=== PATIENT | female | born 1965 | race Caucasian/White ===

== ENCOUNTER 2016-09-12 19:42 | Emergency (ER) | payer OTHER ==
[~2016-09-12] VITALS: Ht 165.1 cm; Wt 47.6 kg
[~2016-09-12 19:42] MED LIST: DIP25C PO; LAM25T PO; PANT40T PO; ZIPR80CA8 PO
[2016-09-12 19:55] VITALS: BP 101/63
[2016-09-12 20:26] LABS: Basophils # (auto) 0 uL; Basophils % (auto) 0.6 % (0.0-2.0); CONDITION Y; Eosinophils # (auto) 0.1 uL; Eosinophils % (auto) 1.2 % (0.0-7.0); Hematocrit 31.1 % (36.0-46.0); Hemoglobin 10.3 g/dL (12.2-16.2); Lymphocytes # (auto) 2.8 uL; Lymphocytes % (auto) 40.1 % (10.0-50.0); Mean Corpuscular Hemoglobin 32.7 pg (28.0-32.0); Mean Corpuscular Volume 98.9 fL (80.0-100.0); Mean Platelet Volume 7.1 fL (7.4-10.4); Monocytes % (auto) 14.2 % (0.0-12.0); Neutrophils # (auto) 3.1 uL; Neutrophils % (auto) 43.9 % (37.0-80.0); Platelet Count (auto) 499 10^3/uL (140-450); Red Cell Distribution Width 15.9 % (11.6-16.0); White Blood Cell 7.1 10^3/uL (4.4-10.8)
[2016-09-12 20:55] LABS: Albumin 2.7 g/dL (3.4-5.0); Alkaline Phosphatase 73 U/L (45-117); Anion Gap 7 (5-15); Aspartate Aminotransferase 15 U/L (15-37); BUN/Creatinine Ratio 22.7; Bilirubin, Total < 0.1 mg/dL (0.2-1.0); Blood Urea Nitrogen 10 mg/dL (7-18); Calcium 8.7 mg/dL (8.5-10.1); Carbon Dioxide 27 mmol/L (21-32); Chloride 109 mmol/L (98-107); GFR African American 192 mL/min; GFR Non-African American 159 mL/min; Glucose 107 mg/dL (74-106); Potassium 3.9 mmol/L (3.5-5.1); Sodium 143 mmol/L (136-145); Total Protein 6.6 g/dL (6.4-8.2)
[2016-09-13 02:13] LABS: Urine RBC None Seen /hpf (0 - 4)
[2016-09-13 02:24] LABS: Urine Bilirubin Negative (Negative); Urine Blood Negative /uL (Negative); Urine Color Yellow (Yellow); Urine Glucose Normal (Normal); Urine Ketone Negative (Negative); Urine Nitrite Negative (Negative); Urine Squamous Epithelial Cell FEW /hpf (<5); Urine Urobilinogen Normal (Negative); Urine pH 6.5 (5.0-8.0)
== END 2016-09-12 23:50 | disposition left against medical advice (07) ==
LOC: EDBD 19:42 → ER 19:47
DX: R06.02 Shortness of breath (principal); Z53.21 Procedure and treatment not carried out due to patient leaving prior to being seen by health care provider
CPT/HCPCS: 36415; 71020; 80053; 80307; 81001; 84484; 85025; 93005

== ENCOUNTER 2017-03-09 13:40 | Inpatient (IN) | payer MEDICAID, OTHER ==
[~2017-03-09] VITALS: Ht 144.8 cm; Wt 47.3 kg
[2017-03-09] MEDS ORDERED: EZ PAQUE SUSP 12OZ BTL ONE (19:52)
[2017-03-09] MEDS ORDERED: GASTROGRAFIN 120 ML SOL ONE (19:54)
[2017-03-09 22:36] LABS: Hematocrit 39.2 % (36.0-46.0); Hemoglobin 13.2 g/dL (12.2-16.2); Mean Corpuscular Hemoglobin 30.7 pg (28.0-32.0); Mean Corpuscular Hgb Conc. 33.7 g/dL (32.0-36.0); Mean Corpuscular Volume 91.1 fL (80.0-100.0); Platelet Count (auto) 339 10^3/uL (140-450); Red Blood Cells 4.31 10^6/uL (4.0-5.20); Red Cell Distribution Width 14.3 % (11.8-14.3); White Blood Cell 4.4 10^3/uL (4.4-10.8)
[2017-03-09 22:39] LABS: Band Neutrophils % (manual) 0; Basophils % (manual) 0 (0.0-2.0); Blast Cells 0; Eosinophils % (manual) 0 (0-7); Metamyelocytes % 0; Myelocytes % 0; Promyelocytes % 0; Reactive Lymphocytes 0
[2017-03-09 22:49] LABS: BUN/Creatinine Ratio 8.3; Bilirubin, Total 0.2 mg/dL (0.2-1.0); Calcium 8.3 mg/dL (8.5-10.1); Potassium 3.8 mmol/L (3.5-5.1); Total Protein 7.4 g/dL (6.4-8.2)
[2017-03-09] MEDS ORDERED: HYDROcodone-ACET 5/325MG TAB PO PRN (23:00)
[2017-03-09] MEDS ORDERED: TEMAZEPAM 15 MG CAP PO PRN (23:00)
[2017-03-09] MEDS ORDERED: ACETAMINOPHEN 325 MG TAB PO PRN (23:00)
[2017-03-09] MEDS ORDERED: ONDANSETRON HCL 4 MG/2 ML VIAL IV PRN (23:00)
[2017-03-09 23:03] LABS: Lymphocytes % (manual) 41 (10.0-50.0); Monocytes % (manual) 13 (0-12)
[2017-03-09] MEDS: SODIUM CHLORIDE 0.9% 1,000 ML IV SCH (23:08)
[2017-03-10 02:40] VITALS: BP 104/76
[2017-03-10] MEDS ORDERED: PNEUMOCOCCAL VACC POLYS 25 MCG/0.5 ML VIAL SUBCUT ONE (04:45)
[2017-03-10 05:00] VITALS: BP 104/76
[2017-03-10] MEDS ORDERED: PNEUMOCOCCAL VACC POLYS 25 MCG/0.5 ML VIAL IM ONE (05:00)
[2017-03-10] MEDS ORDERED: INFLUENZA QUAD 2017-2018 0.5 ML SYRG IM ONE (05:00)
[2017-03-10 08:51] LABS: Hematocrit 38.4 % (36.0-46.0); Hemoglobin 12.7 g/dL (12.2-16.2); Mean Corpuscular Hemoglobin 30.3 pg (28.0-32.0); Mean Corpuscular Hgb Conc. 33.1 g/dL (32.0-36.0); Mean Corpuscular Volume 91.3 fL (80.0-100.0); Platelet Count (auto) 305 10^3/uL (140-450); Red Cell Distribution Width 14.3 % (11.8-14.3); White Blood Cell 3.6 10^3/uL (4.4-10.8)
[2017-03-10 08:54] LABS: Band Neutrophils % (manual) 0; Basophils % (manual) 0 (0.0-2.0); Blast Cells 0; Eosinophils % (manual) 0 (0-7); Metamyelocytes % 0; Myelocytes % 0; Promyelocytes % 0; Reactive Lymphocytes 0
[2017-03-10 09:00] VITALS: BP 107/71
[2017-03-10 09:21] LABS: Albumin 2.6 g/dL (3.4-5.0); BUN/Creatinine Ratio 9.1; Bilirubin, Total 0.1 mg/dL (0.2-1.0); Calcium 7.9 mg/dL (8.5-10.1); Potassium 3.9 mmol/L (3.5-5.1); Total Protein 6.6 g/dL (6.4-8.2)
[2017-03-10] MEDS: ENOXAPARIN SOD 40 MG/0.4 ML SYRINGE SC SCH (10:00)
[2017-03-10] MEDS: lamoTRIgine 25 MG TAB PO SCH (10:14)
[2017-03-10] MEDS: PANTOPRAZOLE 40 MG/10 ML VIAL IV SCH (10:16)
[2017-03-10] MEDS: SODIUM CHLORIDE 0.9% 1,000 ML IV SCH (12:10)
[2017-03-10 13:00] VITALS: BP 93/68
[2017-03-10 13:16] LABS: Lymphocytes % (manual) 43 (10.0-50.0); Monocytes % (manual) 22 (0-12)
[2017-03-10 17:00] VITALS: BP 100/71
[2017-03-10 22:00] VITALS: BP 93/69
[2017-03-11] MEDS: SODIUM CHLORIDE 0.9% 1,000 ML IV SCH ×2 (01:37→14:38)
[2017-03-11 05:01] VITALS: BP 93/63
[2017-03-11 07:56] VITALS: BP 94/53
[2017-03-11] MEDS: PANTOPRAZOLE 40 MG/10 ML VIAL IV SCH (09:47)
[2017-03-11] MEDS: lamoTRIgine 25 MG TAB PO SCH (09:47)
[2017-03-11] MEDS: ENOXAPARIN SOD 40 MG/0.4 ML SYRINGE SC SCH (09:48)
[2017-03-11 10:53] LABS: INR 0.95 (0.9-1.15); Prothrombin Time 10.4 sec (9.37-12.3)
[2017-03-11 11:48] VITALS: BP 106/70
[2017-03-11 16:29] VITALS: BP 90/63
[2017-03-11 22:00] VITALS: BP 90/62
[2017-03-12] MEDS: SODIUM CHLORIDE 0.9% 1,000 ML IV SCH (04:03)
[2017-03-12 05:00] VITALS: BP 98/71
[2017-03-12] MEDS ORDERED: SODIUM CHLORIDE LOCK 10 ML ONE (08:22)
[2017-03-12] MEDS ORDERED: diphenhdrAMINE HCL 50 MG/1 ML VL ONE (08:22)
[2017-03-12] MEDS ORDERED: LIDOCAINE VISCOUS 2% 15ML UD ONE (08:23)
[2017-03-12 09:00] VITALS: BP 82/60
[2017-03-12] MEDS: ENOXAPARIN SOD 40 MG/0.4 ML SYRINGE SC SCH (10:00)
[2017-03-12] MEDS: fentaNYL CITRATE 100 MCG/2 ML VL ONE ×3 (10:15→10:43)
[2017-03-12] MEDS: MIDAZOLAM HCL 5 MG/ML-1ML VIAL ONE ×3 (10:15→10:43)
[2017-03-12] MEDS ORDERED: PANTOPRAZOLE 40 MG TAB PO ONE (11:30)
[2017-03-12] MEDS: lamoTRIgine 25 MG TAB PO SCH (12:30)
[2017-03-12 13:31] VITALS: BP 90/63
[2017-03-12 13:40] VITALS: BP 90/63
[2017-03-12 13:59] VITALS: BP 90/63
[2017-03-12] MEDS ORDERED: PANTOPRAZOLE 40 MG TAB PO SCH (22:00)
== END 2017-03-12 15:25 | disposition home or self-care (01) | DRG 243 ==
LOC: ER 13:44 → OVERFLOW 13:45 → EAST 03-10 02:45
PROVIDERS: ADMIT Nurse Practitioner; ATTEND Internal Medicine
PROC: 0D758ZZ Dilation of Esophagus, Via Natural or Artificial Opening Endoscopic (ICD-10-PCS; principal; 2017-03-12 10:11)
DX: K22.2 Esophageal obstruction (principal); E44.0 Moderate protein-calorie malnutrition; R64 Cachexia; E88.09 Other disorders of plasma-protein metabolism, not elsewhere classified; I10 Essential (primary) hypertension; K44.9 Diaphragmatic hernia without obstruction or gangrene; Z79.899 Other long term (current) drug therapy; Z68.22 Body mass index [BMI] 22.0-22.9, adult; Z23 Encounter for immunization
CPT/HCPCS: 36415; 43213; 43249; 70360; 74220; 80053; 83690; 85007; 85027; 85610; 85730; 92610; 93005; 96361; 96374; C9113; J2250

== ENCOUNTER 2017-05-07 06:06 | Emergency (ER) | payer MEDICAID ==
[~2017-05-07] VITALS: Ht 152.4 cm; Wt 47.6 kg
[~2017-05-07 06:06] MED LIST changes: -PANT40T PO
[2017-05-07 06:12] VITALS: BP 131/84
[2017-05-07 07:10] LABS: Basophils # (auto) 0 uL; Basophils % (auto) 0.4 % (0.0-2.0); Eosinophils # (auto) 0.1 uL; Hematocrit 36.8 % (36.0-46.0); Hemoglobin 12.3 g/dL (12.2-16.2); Lymphocytes # (auto) 2.1 uL; Lymphocytes % (auto) 25.8 % (10.0-50.0); Mean Corpuscular Hemoglobin 30.6 pg (28.0-32.0); Mean Corpuscular Hgb Conc. 33.6 g/dL (32.0-36.0); Mean Corpuscular Volume 91.2 fL (80.0-100.0); Monocytes # (auto) 0.7 uL; Monocytes % (auto) 9.2 % (0.0-12.0); Neutrophils # (auto) 5.1 uL; Neutrophils % (auto) 63.6 % (37.0-80.0); Platelet Count (auto) 363 10^3/uL (140-450); Red Blood Cells 4.04 10^6/uL (4.0-5.20); Red Cell Distribution Width 15.3 % (11.8-14.3); White Blood Cell 8.1 10^3/uL (4.4-10.8)
[2017-05-07 07:26] LABS: Alanine Aminotransferase 16 U/L (13-56); Albumin 2.8 g/dL (3.4-5.0); Alkaline Phosphatase 85 U/L (45-117); Anion Gap 9 (5-15); Aspartate Aminotransferase 14 U/L (15-37); BUN/Creatinine Ratio 33.3; Bilirubin, Total 0.2 mg/dL (0.2-1.0); Blood Urea Nitrogen 14 mg/dL (7-18); Calcium 8.4 mg/dL (8.5-10.1); Carbon Dioxide 26 mmol/L (21-32); Chloride 102 mmol/L (98-107); GFR African American 202 mL/min; GFR Non-African American 167 mL/min; Glucose 119 mg/dL (74-106); Magnesium 2.2 mg/dL (1.6-2.6); Potassium 3.5 mmol/L (3.5-5.1); Sodium 137 mmol/L (136-145); Total Protein 7.1 g/dL (6.4-8.2)
== END 2017-05-07 07:08 | disposition left against medical advice (07) ==
LOC: ER 06:06
DX: R07.9 Chest pain, unspecified (principal); Z53.21 Procedure and treatment not carried out due to patient leaving prior to being seen by health care provider
CPT/HCPCS: 36415; 71045; 80053; 83735; 84443; 84484; 85025

== ENCOUNTER 2017-09-22 13:52 | Inpatient (IN) | payer MEDICAID ==
[~2017-09-22] VITALS: Ht 165.1 cm; Wt 42.9 kg
[2017-09-22] MEDS ORDERED: SODIUM CHLORIDE 0.9% 1,000 ML IVB ONE (14:45)
[2017-09-22 15:07] LABS: Basophils # (auto) 0.1 uL; Eosinophils # (auto) 0 uL; Eosinophils % (auto) 0.3 % (0.0-7.0); Lymphocytes # (auto) 2.3 uL; Neutrophils # (auto) 6.5 uL
[2017-09-22 15:09] LABS: Basophils % (auto) 0.7 % (0.0-2.0); Hematocrit 44.8 % (36.0-46.0); Mean Corpuscular Hemoglobin 28.4 pg (28.0-32.0); Mean Corpuscular Hgb Conc. 33.5 g/dL (32.0-36.0); Mean Corpuscular Volume 84.7 fL (80.0-100.0); Monocytes % (auto) 10.3 % (0.0-12.0); Neutrophils % (auto) 65.7 % (37.0-80.0); Nucleated Red Blood Cells % 0.1 %; Platelet Count (auto) 496 10^3/uL (140-450); Red Blood Cells 5.29 10^6/uL (4.0-5.20); Red Cell Distribution Width 17.1 % (11.8-14.3)
[2017-09-22 15:27] LABS: Alanine Aminotransferase 21 U/L (13-56); Albumin 3.9 g/dL (3.4-5.0); Alkaline Phosphatase 102 U/L (45-117); Anion Gap 13 (5-15); Aspartate Aminotransferase 17 U/L (15-37); Bilirubin, Total 0.6 mg/dL (0.2-1.0); Blood Urea Nitrogen 17 mg/dL (7-18); Carbon Dioxide 25 mmol/L (21-32); Chloride 99 mmol/L (98-107); GFR African American 90 mL/min; GFR Non-African American 74 mL/min; Glucose 117 mg/dL (74-106); Magnesium 2.4 mg/dL (1.6-2.6); Sodium 137 mmol/L (136-145); Total Protein 8.7 g/dL (6.4-8.2)
[2017-09-22 15:32] LABS: Potassium 2.4 mmol/L (3.5-5.1)
[2017-09-22] MEDS ORDERED: POTASSIUM EFFERVESENT TAB 25 MEQ PO ONE ×3 (16:15→16:45)
[2017-09-22] MEDS ORDERED: LORazepam 2MG/ML-1ML VIAL IV PRN (18:00)
[2017-09-22] MEDS ORDERED: diphenhdrAMINE HCL 25 MG CAP PO PRN (18:00)
[2017-09-22] MEDS ORDERED: MORPHINE SULFATE 4 MG/ML SYR/VIAL IV PRN ×3 (18:00)
[2017-09-22] MEDS ORDERED: PROMETHAZINE HCL 25 MG/ML 1ML IV PRN (18:00)
[2017-09-22] MEDS ORDERED: NITROGLYCERIN 0.4 MG SL TAB SL PRN (18:00)
[2017-09-22] MEDS: FAMOTIDINE (10MG/ML) 2ML VL IV SCH (18:17)
[2017-09-22] MEDS: POTASSIUM CHL 20MEQ/100ML 100 ML IV SCH ×3 (18:22→22:00)
[2017-09-22] MEDS: SOD CHL 0.9%/ KCL 40MEQ 1,000 ML IV SCH (18:35)
[2017-09-22] MEDS: ZIPRASIDONE HYDROCHLORIDE 40 MG PO SCH (22:00)
[2017-09-22 23:18] LABS: Urine Bacteria FEW /hpf (None Seen); Urine Blood Negative /uL (Negative); Urine Mucus FEW (None Seen); Urine Specific Gravity 1.026 (1.001-1.035); Urine WBC 21 /hpf (0 - 5)
[2017-09-23] MEDS: POTASSIUM CHL 20MEQ/100ML 100 ML IV SCH
[2017-09-23 04:30] VITALS: BP 98/64
[2017-09-23 04:42] VITALS: BP 98/64
[2017-09-23] MEDS ORDERED: PNEUMOCOCCAL VACC POLYS 25 MCG/0.5 ML VIAL IM ONE (05:15)
[2017-09-23] MEDS: SOD CHL 0.9%/ KCL 40MEQ 1,000 ML IV SCH ×3 (05:40→23:45)
[2017-09-23] MEDS: lamoTRIgine 25 MG TAB PO SCH (09:24)
[2017-09-23] MEDS: FAMOTIDINE (10MG/ML) 2ML VL IV SCH (09:25)
[2017-09-23] MEDS: ZIPRASIDONE HYDROCHLORIDE 40 MG PO SCH ×2 (09:25→21:57)
[2017-09-23 09:26] VITALS: BP 105/70
[2017-09-23 10:11] LABS: BUN/Creatinine Ratio 22.2; Bilirubin, Total 0.6 mg/dL (0.2-1.0); Calcium 8.1 mg/dL (8.5-10.1); Potassium 3.5 mmol/L (3.5-5.1); Total Protein 6.7 g/dL (6.4-8.2)
[2017-09-23 13:00] VITALS: BP 112/80
[2017-09-23] MEDS ORDERED: cefTRIAXone 1GM/10ml IVPUSH 10 ML IV ONE (14:00)
[2017-09-23 17:28] VITALS: BP 119/82
[2017-09-23 21:48] VITALS: BP 102/65
[2017-09-23] MEDS: PANTOPRAZOLE 40 MG/10 ML VIAL IV SCH (21:56)
[2017-09-24 05:05] VITALS: BP 115/62
[2017-09-24 06:53] LABS: INR 1.04 (0.9-1.15); Partial Thromboplastin Time 25.9 sec (23.78-33.04); Prothrombin Time 11.1 sec (9.27-12.13)
[2017-09-24 07:27] VITALS: BP 120/75
[2017-09-24] MEDS ORDERED: diphenhdrAMINE HCL 50 MG/1 ML VL ONE (08:20)
[2017-09-24] MEDS ORDERED: LIDOCAINE VISCOUS 2% 15ML UD ONE (08:20)
[2017-09-24] MEDS: cefTRIAXone 1GM/10ml IVPUSH 10 ML IV SCH (08:30)
[2017-09-24] MEDS: SOD CHL 0.9%/ KCL 40MEQ 1,000 ML IV SCH ×2 (08:31→21:55)
[2017-09-24] MEDS: ZIPRASIDONE HYDROCHLORIDE 40 MG PO SCH ×2 (09:46→21:55)
[2017-09-24] MEDS: lamoTRIgine 25 MG TAB PO SCH (09:47)
[2017-09-24] MEDS: PANTOPRAZOLE 40 MG/10 ML VIAL IV SCH ×2 (10:02→21:52)
[2017-09-24] MEDS: fentaNYL CITRATE 100 MCG/2 ML VL ONE ×3 (12:05→12:13)
[2017-09-24] MEDS: MIDAZOLAM HCL 5 MG/ML-1ML VIAL ONE ×4 (12:05→12:16)
[2017-09-24] MEDS ORDERED: MIDAZOLAM HCL 5 MG/ML-1ML VIAL ONE (12:28)
[2017-09-24] MEDS ORDERED: fentaNYL CITRATE 100 MCG/2 ML VL ONE (12:28)
[2017-09-24 16:32] VITALS: BP 102/73
[2017-09-24 22:00] VITALS: BP 92/51
[2017-09-25 05:33] VITALS: BP 101/60
[2017-09-25] MEDS: SOD CHL 0.9%/ KCL 40MEQ 1,000 ML IV SCH ×2 (05:36→18:46)
[2017-09-25] MEDS: ENSURE CLEAR Mixed Berry 8oz Carton PO SCH ×3 (08:30→18:30)
[2017-09-25] MEDS: cefTRIAXone 1GM/10ml IVPUSH 10 ML IV SCH (09:00)
[2017-09-25] MEDS: ZIPRASIDONE HYDROCHLORIDE 40 MG PO SCH ×2 (09:07→22:00)
[2017-09-25] MEDS: lamoTRIgine 25 MG TAB PO SCH (09:07)
[2017-09-25] MEDS: PANTOPRAZOLE 40 MG/10 ML VIAL IV SCH ×2 (09:07→23:02)
[2017-09-25 13:00] VITALS: BP 109/67
[2017-09-25 17:32] VITALS: BP 120/69
[2017-09-25 21:52] VITALS: BP 124/69
[2017-09-26 05:18] VITALS: BP 132/66
[2017-09-26 08:17] VITALS: BP 98/62
[2017-09-26] MEDS: PANTOPRAZOLE 40 MG/10 ML VIAL IV SCH (09:40)
[2017-09-26] MEDS: lamoTRIgine 25 MG TAB PO SCH (09:40)
[2017-09-26] MEDS: SOD CHL 0.9%/ KCL 40MEQ 1,000 ML IV SCH ×2 (09:40→12:00)
[2017-09-26] MEDS: cefTRIAXone 1GM/10ml IVPUSH 10 ML IV SCH (09:40)
[2017-09-26] MEDS: ENSURE CLEAR Mixed Berry 8oz Carton PO SCH ×2 (09:41→12:30)
[2017-09-26] MEDS ORDERED: ZIPR80CA8 PO (09:48)
[2017-09-26] MEDS ORDERED: LAM100T PO (09:48)
[2017-09-26] MEDS: ZIPRASIDONE HYDROCHLORIDE 40 MG PO SCH (10:00)
== END 2017-09-26 18:00 | disposition home or self-care (01) | DRG 243 ==
LOC: ER 13:54 → TELE 13:55 → TELE-WESTW 09-23 04:25 → WEST WING 09-25 07:57
PROVIDERS: ADMIT Internal Medicine; ATTEND Hospitalist
PROC: 0DC58ZZ Extirpation of Matter from Esophagus, Via Natural or Artificial Opening Endoscopic (ICD-10-PCS; 2017-09-24)
PROC: 0D758ZZ Dilation of Esophagus, Via Natural or Artificial Opening Endoscopic (ICD-10-PCS; principal; 2017-09-24 12:02)
DX: K22.2 Esophageal obstruction (principal); E44.0 Moderate protein-calorie malnutrition; T18.128A Food in esophagus causing other injury, initial encounter; F20.9 Schizophrenia, unspecified; I10 Essential (primary) hypertension; E87.6 Hypokalemia; K44.9 Diaphragmatic hernia without obstruction or gangrene; Z82.49 Family history of ischemic heart disease and other diseases of the circulatory system; F31.9 Bipolar disorder, unspecified; N39.0 Urinary tract infection, site not specified; Z23 Encounter for immunization; R62.7 Adult failure to thrive; X58.XXXA Exposure to other specified factors, initial encounter; Y93.89 Activity, other specified; Y92.89 Other specified places as the place of occurrence of the external cause; Y99.8 Other external cause status; F17.200 Nicotine dependence, unspecified, uncomplicated; K20.9 Esophagitis, unspecified
CPT/HCPCS: 36415; 43247; 43249; 70360; 71045; 80053; 80061; 81001; 83735; 84484; 85025; 85610; 85730; 86850; 86900; 86901; 94761; 96361; 96365; A6257; C9113; J0696; J2250; J3480; J3490

== ENCOUNTER 2018-01-30 13:32 | Emergency (ER) | payer MEDICAID ==
[~2018-01-30] VITALS: Ht 165.1 cm; Wt 49.9 kg
[~2018-01-30 13:32] MED LIST changes: -DIP25C PO; +LAM100T PO; -LAM25T PO
[2018-01-30 15:11] LABS: Basophils # (auto) 0.1 uL; Eosinophils # (auto) 0 uL; Lymphocytes # (auto) 2.4 uL
[2018-01-30 15:13] LABS: Basophils % (auto) 0.9 % (0.0-2.0); Eosinophils % (auto) 0.3 % (0.0-7.0); Hematocrit 35.1 % (36.0-46.0); Hemoglobin 11.5 g/dL (12.2-16.2); Lymphocytes % (auto) 25.6 % (10.0-50.0); Mean Corpuscular Hgb Conc. 32.8 g/dL (32.0-36.0); Mean Corpuscular Volume 82.3 fL (80.0-100.0); Monocytes % (auto) 10.2 % (0.0-12.0); Nucleated Red Blood Cells % 0.1 %; Platelet Count (auto) 480 10^3/uL (140-450); Red Blood Cells 4.27 10^6/uL (4.0-5.20); Red Cell Distribution Width 15.9 % (11.8-14.3); White Blood Cell 9.5 10^3/uL (4.4-10.8)
[2018-01-30 15:30] LABS: Albumin 3.5 g/dL (3.4-5.0); Calcium 9.1 mg/dL (8.5-10.1); Potassium 3.6 mmol/L (3.5-5.1)
[2018-01-30 15:36] LABS: BUN/Creatinine Ratio 21.7; Bilirubin, Total 0.3 mg/dL (0.2-1.0); Total Protein 7.7 g/dL (6.4-8.2)
[2018-01-30 16:16] LABS: Urine Bacteria FEW /hpf (None Seen); Urine Blood Negative /uL (Negative); Urine Mucus FEW (None Seen); Urine Specific Gravity 1.022 (1.001-1.035); Urine WBC 1 /hpf (0 - 5)
[2018-01-30 16:26] LABS: INR 0.97 (0.9-1.15); Prothrombin Time 10.4 sec (9.27-12.13)
[2018-01-30 17:40] VITALS: BP 110/70
[2018-02-04] MEDS ORDERED: DIPH25CA66 PO (00:38)
[2018-02-04] MEDS ORDERED: PANT40T PO (12:20)
== END 2018-01-30 18:47 | disposition home or self-care (01) ==
LOC: ER 13:38
DX: K22.2 Esophageal obstruction (principal); K22.0 Achalasia of cardia; I10 Essential (primary) hypertension
CPT/HCPCS: 36415; 70360; 80053; 81001; 85025; 85610; 85730

== ENCOUNTER 2018-03-28 15:49 | Inpatient (IN) | payer MEDICAID ==
[~2018-03-28] VITALS: Ht 165.1 cm; Wt 50.0 kg
[~2018-03-28 15:49] MED LIST changes: +DIPH25CA66 PO; +PANT40T PO
[2018-03-28] MEDS ORDERED: SODIUM CHLORIDE 0.9% 250 ML IV ONE (16:25)
[2018-03-28 17:46] LABS: Basophils # (auto) 0.1 uL; Eosinophils # (auto) 0.1 uL; Eosinophils % (auto) 1.3 % (0.0-7.0); Monocytes # (auto) 1.2 uL; Monocytes % (auto) 11.2 % (0.0-12.0); Nucleated Red Blood Cells % 0.2 %
[2018-03-28 17:48] LABS: Basophils % (auto) 1.3 % (0.0-2.0); Hematocrit 39.6 % (36.0-46.0); Hemoglobin 13.1 g/dL (12.2-16.2); Lymphocytes # (auto) 4.3 uL; Lymphocytes % (auto) 39.8 % (10.0-50.0); Mean Corpuscular Hemoglobin 24.8 pg (28.0-32.0); Mean Corpuscular Volume 74.9 fL (80.0-100.0); Neutrophils % (auto) 46.4 % (37.0-80.0); Platelet Count (auto) 531 10^3/uL (140-450); Red Blood Cells 5.28 10^6/uL (4.0-5.20); Red Cell Distribution Width 16.2 % (11.8-14.3); White Blood Cell 10.9 10^3/uL (4.4-10.8)
[2018-03-28 17:54] LABS: Albumin 3.9 g/dL (3.4-5.0); Anion Gap 12 (5-15); Blood Urea Nitrogen 23 mg/dL (7-18); Calcium 8.9 mg/dL (8.5-10.1); Carbon Dioxide 27 mmol/L (21-32); Chloride 90 mmol/L (98-107); Glucose 83 mg/dL (74-106); Magnesium 2.4 mg/dL (1.6-2.6); Sodium 129 mmol/L (136-145)
[2018-03-28 17:56] LABS: Potassium 2.5 mmol/L (3.5-5.1)
[2018-03-28 18:00] LABS: Alanine Aminotransferase 21 U/L (13-56); Alkaline Phosphatase 115 U/L (45-117); Aspartate Aminotransferase 23 U/L (15-37); BUN/Creatinine Ratio 35.4; Bilirubin, Total 0.7 mg/dL (0.2-1.0); GFR African American 122 mL/min; GFR Non-African American 101 mL/min; Total Protein 8.2 g/dL (6.4-8.2)
[2018-03-28 18:12] LABS: INR 1.09 (0.9-1.15); Partial Thromboplastin Time 27.4 sec (23.78-33.04); Prothrombin Time 11.6 sec (9.27-12.13)
[2018-03-28] MEDS: POTASSIUM CHL 20MEQ/100ML 100 ML IV SCH ×2 (19:01→22:10)
[2018-03-28] MEDS ORDERED: HYDROcodone-ACET 5/325MG TAB PO PRN (19:30)
[2018-03-28] MEDS ORDERED: ONDANSETRON HCL 4 MG/2 ML VIAL IV PRN (19:30)
[2018-03-28] MEDS ORDERED: MORPHINE SULFATE 4 MG/ML SYR/VIAL IV PRN ×2 (19:30)
[2018-03-28] MEDS ORDERED: NITROGLYCERIN 0.4 MG SL TAB SL PRN (19:30)
[2018-03-28 22:00] VITALS: BP 97/73
[2018-03-28] MEDS: PANTOPRAZOLE 40 MG TAB PO SCH (22:00)
[2018-03-28] MEDS: QUEtiapine FUMARATE 25 MG TAB PO SCH (22:00)
--- NOTE | 2018-03-28 22:00 | NUR ---
MS admit from ER MALIKA BOSE admitted to tele/MS after SBAR received. Patient oriented to Lissette Maria, RN primary RN, unit, room, bed, and unit policies regarding patient care and visiting hours. Patient weighed by bedscale and encouraged to call if they need something. All questions and concerns addressed, patient verbalized understanding, will continue to monitor Note:
[2018-03-28] MEDS: SOD CHL 0.9%/ KCL 20MEQ 1,000 ML IV SCH (22:10)
--- NOTE | 2018-03-28 22:30 | NUR ---
Patient able to drink juice at this time. Instructed to be NPO after MN for Barium swallow in the morning, patient verbalized understanding, will continue to monitor
[2018-03-29 03:28] LABS: Urine Bacteria FEW /hpf (None Seen); Urine Blood Negative /uL (Negative); Urine Hyaline Cast FEW /lpf (0 - 2); Urine Specific Gravity 1.014 (1.001-1.035); Urine WBC 3 /hpf (0 - 5)
[2018-03-29 05:00] VITALS: BP 82/53
[2018-03-29 05:02] LABS: Basophils # (auto) 0.1 uL; Eosinophils # (auto) 0.1 uL; Hemoglobin 11.6 g/dL (12.2-16.2); Mean Corpuscular Hgb Conc. 32.4 g/dL (32.0-36.0)
[2018-03-29 05:05] LABS: Basophils % (auto) 1.2 % (0.0-2.0); Eosinophils % (auto) 1.2 % (0.0-7.0); Hematocrit 35.9 % (36.0-46.0); Lymphocytes # (auto) 3.9 uL; Lymphocytes % (auto) 43.8 % (10.0-50.0); Mean Corpuscular Hemoglobin 24.3 pg (28.0-32.0); Mean Corpuscular Volume 74.9 fL (80.0-100.0); Monocytes # (auto) 0.9 uL; Monocytes % (auto) 10.5 % (0.0-12.0); Neutrophils # (auto) 3.8 uL; Neutrophils % (auto) 43.3 % (37.0-80.0); Platelet Count (auto) 402 10^3/uL (140-450); Red Blood Cells 4.79 10^6/uL (4.0-5.20); Red Cell Distribution Width 16.7 % (11.8-14.3); White Blood Cell 8.9 10^3/uL (4.4-10.8)
[2018-03-29 05:20] LABS: BUN/Creatinine Ratio 33.3; Calcium 8.2 mg/dL (8.5-10.1); Potassium 3.4 mmol/L (3.5-5.1)
[2018-03-29] MEDS: SOD CHL 0.9%/ KCL 20MEQ 1,000 ML IV SCH ×2 (05:30→09:50)
[2018-03-29] MEDS ORDERED: EZ-GAS II GRANULES (RADIOLOGY USE) PO ONE (06:28)
[2018-03-29] MEDS ORDERED: GASTROGRAFIN 120 ML SOL ONE (06:29)
[2018-03-29] MEDS ORDERED: EZ PAQUE SUSP 12OZ BTL ONE (06:29)
--- NOTE | 2018-03-29 07:40 | NUR ---
OPENING NOTE ASSUMED CARE OF PT. PT IS LAYING ON BED, HOB LOW-FOWLERS. A&O X4. ON ROOM, O2 SATURATION 99%. NO SIGNS OF SOB/DISTRESS. SAFETY PRECAUTIONS IN PLACE INCLUDING, BED SET TO LOWEST POSITION/LOCKED. BEDSIDE RAILS UP X2. CALL LIGHT WITHIN REACH. INSTRUCTED PT TO CALL FOR ASSISTANCE. DISCUSSED POC WITH PT. PT VERBALIZED UNDERSTANDING. WILL CONTINUE TO MONITOR Q 1HR AND PRN.
[2018-03-29 09:00] VITALS: BP 89/60
[2018-03-29] MEDS: lamoTRIgine 25 MG TAB PO SCH (09:50)
[2018-03-29] MEDS: QUEtiapine FUMARATE 25 MG TAB PO SCH ×2 (09:50→21:22)
[2018-03-29] MEDS: PANTOPRAZOLE 40 MG TAB PO SCH ×2 (09:50→21:21)
[2018-03-29 13:00] VITALS: BP 89/66
--- NOTE | 2018-03-29 13:51 | NUR ---
PATIENT SIGNED AMA FORM TO GO OUTSIDE. PATIENT WAS INFORMED OF THE RISK. PATIENT VERBALIZED UNDERSTANDING.
[2018-03-29 17:00] VITALS: BP_SYST 116; BP_SYST 89; BP_DIAS 59; BP_DIAS 62
[2018-03-29] MEDS ORDERED: POTASSIUM EFFERVESENT TAB 25 MEQ PO ONE (18:30)
[2018-03-29] MEDS: SODIUM CHLORIDE 0.9% 1,000 ML IV SCH ×2 (19:46→21:22)
--- NOTE | 2018-03-29 19:46 | NUR ---
ENDORSED CARE TO DANNIELLE SHERIDAN.
--- NOTE | 2018-03-29 19:50 | NUR ---
RECEIVED PATIENT IN BED, AAOX4. NO DISTRESS NOTED. AFEBRILE. DENIES ANY PAIN NOW. WITH MILD BLE WEAKNESS NOTED. POCS DISCUSSED WITH PATIENT AND SHOWED UNDERSTANDING. BED KEPT ON LOWEST POSITION. SIDE RAILS UP. CALL LIGHT/TABLE IN REACH. KEPT COMFORTABLE.
--- NOTE | 2018-03-29 21:50 | NUR ---
BP= 66-74 SYSTOLIC. HR= 81 O2= 97. PAGEWinsome NUNES. AWAITING CALL BACK. PATIENT IS ASYMPTOMATIC. MADE KAVON CHARGE NURSE AWARE AND SHE SAID SHE WILL LET ANTHONY KNOW. NOTED.
[2018-03-29 22:00] VITALS: BP 75/45
--- NOTE | 2018-03-29 22:15 | NUR ---
DR HALL, COVERING FOR DR MIRELES CALLED WITH ORDERS MADE AND NOTED.
[2018-03-29] MEDS ORDERED: SODIUM CHLORIDE 0.9% 1,000 ML IV ONE (22:30)
--- NOTE | 2018-03-29 23:30 | NUR ---
BP= 77/42 AFTER 2ND LITER BOLUS WITH NS. PATIENT DENIES BLEEDING, SOB, PAIN,DIZZINESS,WEAKNESS. SHE CLAIMED THAT SHE IS SO TIRED AND SHE WANTED TO SLEEP. MADE MD AWARE. MADE CHARGE NURSE AWARE. MD GAVE ORDERS AND NOTED. MD HALL SAID, OKAY TO KEEP PATIENT ON THE FLOOR LONG SHE IS ASYMPTOMATIC AND TO CALL HIM BACK IF CONDITION CHANGES. WILL KEEP AN EYE ON PATIENT.
[2018-03-30] VITALS (9 sets, daily range): BP systolic 72–93; BP diastolic 42–61
[2018-03-30] MEDS ORDERED: SODIUM CHLORIDE 0.9% 1,000 ML IV ONE (00:30)
[2018-03-30 05:49] LABS: Hemoglobin 9.4 g/dL (12.2-16.2); Mean Corpuscular Hemoglobin 24.9 pg (28.0-32.0); Red Blood Cells 3.79 10^6/uL (4.0-5.20)
[2018-03-30 05:51] LABS: Hematocrit 29.1 % (36.0-46.0); Mean Corpuscular Hgb Conc. 32.4 g/dL (32.0-36.0); Mean Corpuscular Volume 76.9 fL (80.0-100.0); Platelet Count (auto) 304 10^3/uL (140-450); White Blood Cell 5.3 10^3/uL (4.4-10.8)
[2018-03-30 06:00] LABS: Calcium 7.7 mg/dL (8.5-10.1); Potassium 4.1 mmol/L (3.5-5.1)
[2018-03-30 06:01] LABS: Band Neutrophils % (manual) 0; Basophils % (manual) 0 (0.0-2.0); Blast Cells 0; Metamyelocytes % 0; Myelocytes % 0; Promyelocytes % 0; Reactive Lymphocytes 0
--- NOTE | 2018-03-30 06:03 | NUR ---
ON BED, ASLEEP. NO CHANGES NOTED. NO SOB NOTED. APPEARED COMFORTABLE. FOR MORE CARE AND MANAGEMENT.
[2018-03-30 06:51] LABS: Eosinophils % (manual) 1 (0-7); Lymphocytes % (manual) 66 (10.0-50.0); Monocytes % (manual) 13 (0-12)
--- NOTE | 2018-03-30 07:45 | NUR ---
OPENING NOTE ASSUMED CARE OF PT. PT IS LAYING ON BED, HOB LOW-FOWLERS. A&O X4. ON ROOM, O2 SATURATION 91%. NO SIGNS OF SOB/DISTRESS. SAFETY PRECAUTIONS IN PLACE INCLUDING, BED SET TO LOWEST POSITION/LOCKED. BEDSIDE RAILS UP X2. CALL LIGHT WITHIN REACH. INSTRUCTED PT TO CALL FOR ASSISTANCE. DISCUSSED POC WITH PT. PT VERBALIZED UNDERSTANDING. WILL CONTINUE TO MONITOR Q 1HR AND PRN.
--- NOTE | 2018-03-30 08:20 | NUR ---
PAGED DR. VINCENT REGARDING PATIENT BLOOD PRESSURE. AWAITING CALL BACK.
--- NOTE | 2018-03-30 08:41 | NUR ---
SPOKE TO DR. VINCENT REGARDING PATIENT LOW BP. PER DR. VINCENT BP SYSTOLIC BP NEEDS TO BE >100 FOR EGD PROCEDURE.
--- NOTE | 2018-03-30 09:10 | NUR ---
REASSESSED BP 90/62, HR 71, RR 18, O2 SATURATION 100% ON ROOM AIR. PATIENT IS ASYMPTOMATIC. PATIENT IS LAYING ON BED A&O X4. WILL INFORM MD. WILL CONTINUE TO MONITOR.
[2018-03-30] MEDS: PANTOPRAZOLE 40 MG TAB PO SCH ×2 (10:00→22:00)
[2018-03-30] MEDS: lamoTRIgine 25 MG TAB PO SCH (10:00)
[2018-03-30] MEDS: QUEtiapine FUMARATE 25 MG TAB PO SCH ×2 (10:00→22:00)
[2018-03-30] MEDS ORDERED: MIDAZOLAM HCL 5 MG/ML-1ML VIAL ONE (10:39)
[2018-03-30] MEDS ORDERED: diphenhdrAMINE HCL 50 MG/1 ML VL ONE (10:39)
[2018-03-30] MEDS ORDERED: NALOXONE HCL 0.4 MG/ML VIAL ONE (10:39)
[2018-03-30] MEDS ORDERED: FLUMAZENIL 0.1 MG/ML INJ 10ML MDV IV ONE (10:39)
[2018-03-30] MEDS ORDERED: SODIUM CHLORIDE LOCK 10 ML ONE (10:39)
[2018-03-30] MEDS ORDERED: LIDOCAINE VISCOUS 2% 15ML UD ONE (10:39)
[2018-03-30] MEDS ORDERED: fentaNYL CITRATE 100 MCG/2 ML VL ONE (10:39)
--- NOTE | 2018-03-30 11:32 | NUR ---
SPOKE TO DR Georges MOORE REGARDING BP. NEW ORDERS GIVE/CARRIED OUT IN [facility].
[2018-03-30] MEDS ORDERED: SODIUM CHLORIDE 0.9% 2,000 ML IV ONE (11:45)
--- NOTE | 2018-03-30 12:27 | NUR ---
REASSESSED BP 92/61
--- NOTE | 2018-03-30 12:45 | NUR ---
REASSESSED BP 85/62, HR 68, RR 18, O2 SATURATION 99% ON ROOM AIR. PATIENT IS ASYMPTOMATIC. PATIENT IS LAYING ON BED A&O X4. WILL CONTINUE TO MONITOR.
--- NOTE | 2018-03-30 13:30 | NUR ---
RE: EGD PER DR. VINCENT EGD WILL BE DONE TOMORROW 03/31/18.
--- NOTE | 2018-03-30 17:44 | NUR ---
IV insertion IV access obtained, via clean sterile technique by inserting 22 gauge catheter at right FA after 4 attempt(s). IV secured properly. No trauma to site. Patient tolerated well.
--- NOTE | 2018-03-30 17:50 | NUR ---
IV removal IV DC'd with clean sterile technique, catheter fully intact. Pressure dressing applied to site. Patient tolerated well.
[2018-03-30] MEDS ORDERED: MIDODRINE HCL 10 MG TAB PO ONE (18:15)
[2018-03-30] MEDS: SODIUM CHLORIDE 0.9% 1,000 ML IV SCH (18:23)
--- NOTE | 2018-03-30 19:16 | NUR ---
ENDORSED CARE TO DANNIELLE SUMNER.
[2018-03-31] MEDS: SODIUM CHLORIDE 0.9% 1,000 ML IV SCH ×2 (04:10→12:03)
[2018-03-31 05:30] VITALS: BP 96/54
[2018-03-31] MEDS ORDERED: MIDODRINE HCL 10 MG TAB PO ONE (06:00)
--- NOTE | 2018-03-31 07:15 | NUR ---
OPENING SHIFT NOTE ASSUMED CARE OF PATIENT FROM SUPERVISOR DOPING RN IVIS. PATIENT IS AWAKE AND ALERT X4. PATIENT HAS NO S/S OF DISTRESS/SOB OR PAIN. INSTRUCTED PATIENT ON POC, PATIENT VERBALIZED UNDERSTANDING. BED IS IN LOWEST POSITION WITH SIDE RAILS RAISED X2, BED WHEELS LOCKED, AND CALL LIGHT WITHIN REACH. WILL CONTINUE TO MONITOR
[2018-03-31 08:15] VITALS: BP 95/60
[2018-03-31] MEDS ORDERED: SODIUM CHLORIDE LOCK 10 ML ONE (08:39)
[2018-03-31] MEDS ORDERED: diphenhdrAMINE HCL 50 MG/1 ML VL ONE (08:40)
--- NOTE | 2018-03-31 08:57 | NUR ---
PATIENT TAKEN DOWN TO OR VIA GURNEY. PATIENT HAS NO S/S OF DISTRESS/SOB OR PAIN AT THIS TIME.
[2018-03-31 09:00] VITALS: BP 98/60
[2018-03-31] MEDS: fentaNYL CITRATE 100 MCG/2 ML VL ONE ×3 (09:48→09:56)
[2018-03-31] MEDS: LIDOCAINE VISCOUS 2% 15ML UD ONE (09:48)
[2018-03-31] MEDS: MIDAZOLAM HCL 5 MG/ML-1ML VIAL ONE ×2 (09:48→09:56)
[2018-03-31] MEDS: PANTOPRAZOLE 40 MG TAB PO SCH ×2 (10:00→20:59)
[2018-03-31] MEDS: QUEtiapine FUMARATE 25 MG TAB PO SCH ×2 (10:00→20:58)
[2018-03-31] MEDS: lamoTRIgine 25 MG TAB PO SCH (10:00)
--- NOTE | 2018-03-31 10:25 | NUR ---
REPORT RECEIVED FROM MERCHANDISE ASSOCIATEDANNIELLE ORTEGA. PATIENT IS ON A CLEAR LIQUID DIET.
--- NOTE | 2018-03-31 10:35 | NUR ---
PATIENT BACK UP FROM PACU. PATIENT HAS NO S/S OF DISTRESS/SOB OR PAIN AT THIS TIME.
[2018-03-31 13:00] VITALS: BP 91/63
--- NOTE | 2018-03-31 14:21 | NUR ---
Nutrition Assessment Notes please see attached link for complete assessment Est. Needs IBW 56 [id number] kcal (25-30 kcal/kgBW), 56-67 gms pro (1.0-1.2gms/kgBW). Will continue to monitor pertinent labs and reassess nutrient needs prn Addendum: 03/31/18 at [address] Amended: Links added.
--- NOTE | 2018-03-31 15:19 | NUR ---
I faxed higher level of care order to [facility].
--- NOTE | 2018-03-31 15:28 | NUR ---
I spoke with Kala at [facility] center [phone], provided her with contact information for both Dr. Calzada as well as the nurse's station.
[2018-03-31] MEDS ORDERED: SODIUM CHLORIDE 0.9% 1,000 ML IV SCH (15:30)
--- NOTE | 2018-03-31 15:55 | NUR ---
PAGED DR. MOORE REGARDING TPN. AWAITING CALL BACK Addendum: 03/31/18 at 1856 by Linda Nesbitt RN RN PPN NOT TPN
--- NOTE | 2018-03-31 15:56 | NUR ---
CALLED PHARMACY AND INFORMED THEM PATIENT HAS PPN ORDERED. THEY WILL SEND IT UP FOR 2000
[2018-03-31] MEDS ORDERED: PPN PER PHARMACY 0 ML IV SCH ×2 (16:00→17:00)
[2018-03-31] MEDS ORDERED: D5W/SOD CHL 0.45% 1,000 ML IV SCH (17:00)
--- NOTE | 2018-03-31 17:03 | NUR ---
I placed [facility] on will-call pending transfer to [facility], auth for [facility] (from [facility]) is [id number], the auth for [facility] is [id number].
[2018-03-31 17:40] LABS: Albumin 3.2 g/dL (3.4-5.0); Calcium 8.2 mg/dL (8.5-10.1); Magnesium 1.8 mg/dL (1.6-2.6)
[2018-03-31 17:45] LABS: BUN/Creatinine Ratio 3.6; Bilirubin, Total 0.3 mg/dL (0.2-1.0); Phosphorus 2.8 mg/dL (2.5-4.90); Pre Albumin 11.5 mg/dL (20.0-40.0); Total Protein 6.7 g/dL (6.4-8.2)
--- NOTE | 2018-03-31 19:20 | NUR ---
CLOSING SHIFT NOTE ENDORSED CARE TO TANK TESTER RN IVIS. PATIENT HAS NO S/S OF DISTRESS/SOB OR PAIN AT THIS TIME.
[2018-03-31 20:00] VITALS: BP 83/49
[2018-03-31] MEDS: AMINO ACID INFUSION IN D10W 1,000 ML IV NR (20:21)
[2018-03-31 22:23] VITALS: BP 83/49
[2018-03-31] MEDS: POTASSIUM CHL 20MEQ/100ML 100 ML IV SCH (22:33)
[2018-04-01] MEDS ORDERED: DEXTROSE (50%) 50ML SYRG IV SCH
[2018-04-01] MEDS ORDERED: POTASSIUM PHOSP 22MEQ(15MMOLE) in NS 100 ML IV ONE ×2
[2018-04-01] MEDS: ACCU-CHEK COMFORT CURVE STRIP VI SCH ×4 (00:27→18:17)
[2018-04-01] MEDS: POTASSIUM CHL 20MEQ/100ML 100 ML IV SCH (04:14)
[2018-04-01 05:24] VITALS: BP 96/59
[2018-04-01] MEDS: InsuLIN REG 1unit/0.01ml Soln (100units/ml) SC SCH ×4 (05:25→18:00)
[2018-04-01 05:40] LABS: Lymphocytes # (auto) 3.5 uL; Monocytes # (auto) 0.6 uL; Nucleated Red Blood Cells % 0.1 %
[2018-04-01 05:43] LABS: Basophils # (auto) 0 uL; Basophils % (auto) 0.5 % (0.0-2.0); Eosinophils # (auto) 0.1 uL; Eosinophils % (auto) 1.8 % (0.0-7.0); Hematocrit 30.8 % (36.0-46.0); Lymphocytes % (auto) 50.5 % (10.0-50.0); Mean Corpuscular Hemoglobin 24.4 pg (28.0-32.0); Mean Corpuscular Hgb Conc. 32.4 g/dL (32.0-36.0); Mean Corpuscular Volume 75.5 fL (80.0-100.0); Monocytes % (auto) 8.8 % (0.0-12.0); Neutrophils # (auto) 2.6 uL; Neutrophils % (auto) 38.4 % (37.0-80.0); Platelet Count (auto) 337 10^3/uL (140-450); Red Blood Cells 4.08 10^6/uL (4.0-5.20); Red Cell Distribution Width 17.2 % (11.8-14.3); White Blood Cell 6.9 10^3/uL (4.4-10.8)
[2018-04-01 05:55] LABS: Albumin 2.4 g/dL (3.4-5.0); BUN/Creatinine Ratio 2.1; Calcium 7.6 mg/dL (8.5-10.1); Magnesium 1.8 mg/dL (1.6-2.6); Potassium 3.7 mmol/L (3.5-5.1)
[2018-04-01 05:57] LABS: Bilirubin, Total 0.2 mg/dL (0.2-1.0); Phosphorus 5.6 mg/dL (2.5-4.90); Total Protein 5.2 g/dL (6.4-8.2)
--- NOTE | 2018-04-01 08:54 | NUR ---
[facility] transfer office called requesting doctor to doctor contact number for dr marcos. given [phone] from quick print operator. requested that social science professor contact them today. will pass on message
[2018-04-01 09:00] VITALS: BP 121/75
[2018-04-01] MEDS: lamoTRIgine 25 MG TAB PO SCH (09:17)
[2018-04-01] MEDS: PANTOPRAZOLE 40 MG TAB PO SCH ×2 (09:18→22:00)
[2018-04-01] MEDS: QUEtiapine FUMARATE 25 MG TAB PO SCH ×2 (09:18→22:00)
--- NOTE | 2018-04-01 09:47 | NUR ---
I spoke with Connie at the [facility] transfer center [phone], she said they have been trying to get a hold of Dr. Grayson without success since yesterday evening-I called Vanesa at [facility] and made her aware, she will speak with him and give me a call back.
--- NOTE | 2018-04-01 11:50 | NUR ---
I spoke with Connie at the [facility] transfer center [phone], she said that Dr. Errol Jim is accepting this patient, we are just waiting for a bed assignment-I relayed this information to patient's nurse and asked her to have the chart copied and all radiology procedures placed on a disc-I also called Vnaesa at [facility] and updated her on the status of the transfer.
[2018-04-01 13:00] VITALS: BP 94/60
[2018-04-01 17:00] VITALS: BP 98/58
[2018-04-01] MEDS: AMINO ACID INFUSION IN D10W 1,000 ML IV NR (19:49)
[2018-04-01 20:00] VITALS: BP 83/49
[2018-04-01] MEDS ORDERED: CLINIMIX PER PHARMACY IV NR (20:00)
[2018-04-01 22:01] VITALS: BP 101/67
[2018-04-02 05:00] VITALS: BP 90/60
[2018-04-02] MEDS: InsuLIN REG 1unit/0.01ml Soln (100units/ml) SC SCH ×3 (06:00→12:00)
[2018-04-02] MEDS: ACCU-CHEK COMFORT CURVE STRIP VI SCH ×3 (06:25→12:00)
[2018-04-02 06:41] LABS: Albumin 2.8 g/dL (3.4-5.0); Calcium 8.2 mg/dL (8.5-10.1); Magnesium 1.9 mg/dL (1.6-2.6); Potassium 3.9 mmol/L (3.5-5.1)
[2018-04-02 06:44] LABS: BUN/Creatinine Ratio 5.9; Bilirubin, Total 0.3 mg/dL (0.2-1.0); Phosphorus 3.9 mg/dL (2.5-4.90)
[2018-04-02 09:00] VITALS: BP 101/66
[2018-04-02] MEDS: QUEtiapine FUMARATE 25 MG TAB PO SCH (10:00)
[2018-04-02] MEDS: lamoTRIgine 25 MG TAB PO SCH (10:00)
[2018-04-02] MEDS: PANTOPRAZOLE 40 MG TAB PO SCH (10:00)
[2018-04-02 13:00] VITALS: BP 101/71
--- NOTE | 2018-04-02 15:00 | NUR ---
IV removal IV left AC DC'd with sterile technique, catheter fully intact. Pressure dressing applied to site. Patient tolerated procedure well. NOTE:
--- NOTE | 2018-04-02 16:07 | NUR ---
Received call from Marzena at [facility] transfer center. She states the patient has a bed in [address]. [phone] to call report. [facility] called and transport is set up.
--- NOTE | 2018-04-02 16:37 | NUR ---
Report called to Kaur Viera RN at [facility]. [phone].
--- NOTE | 2018-04-02 16:42 | NUR ---
Spoke with Dr. Sreedhar Calzada re IV fluids during transfer. Dr. Calzada states the patient can be heplocked for transport.
[2018-04-02 16:57] VITALS: BP 90/62
--- NOTE | 2018-04-02 18:45 | NUR ---
IV insertion IV access obtained, via clean sterile technique by inserting 22 gauge catheter at left hand after 2 attempts. IV secured properly. No trauma to site. Patient tolerated procedure well. IV left forearm removed with tip intact. Pressure dressing to site.
--- NOTE | 2018-04-02 18:50 | NUR ---
Discharge instructions given as ordered. Encourage to follow up with PMD as instructed. All questions and concerns addressed. Patient verbalized understanding. Medication reconciliation form completed and copy given to patient. Telemetry unit returned to ICU. Patient taken to vehicle via wheelchair with all personal belongings, accompanied by staff and family member. No distress noted at time of departure. IV left hand patent. Patient transported to [facility] via [facility].
[2018-04-02] MEDS ORDERED: PPN PER PHARMACY IV NR ×8 (20:00)
== END 2018-04-02 18:50 | disposition short-term general hospital (02) | DRG 243 ==
LOC: EDBD 15:49 → ER 15:54 → OVERFLOW 19:26 → CENTRAL 20:55 → TELE-CENTR 03-31 04:37
PROVIDERS: ADMIT Nurse Practitioner Acute Care; ATTEND Internal Medicine
PROC: 0DJ08ZZ Inspection of Upper Intestinal Tract, Via Natural or Artificial Opening Endoscopic (ICD-10-PCS; principal; 2018-03-31 09:43)
DX: K22.2 Esophageal obstruction (principal); E46 Unspecified protein-calorie malnutrition; E87.5 Hyperkalemia; F20.9 Schizophrenia, unspecified; E86.0 Dehydration; E87.6 Hypokalemia; F31.9 Bipolar disorder, unspecified; Z68.1 Body mass index [BMI] 19.9 or less, adult; F17.210 Nicotine dependence, cigarettes, uncomplicated; I10 Essential (primary) hypertension; Z82.49 Family history of ischemic heart disease and other diseases of the circulatory system; T73.0XXA Starvation, initial encounter
CPT/HCPCS: 36415; 71045; 74220; 80048; 80053; 81001; 82040; 82962; 83735; 83880; 84100; 84443; 84478; 84484; 85007; 85025; 85027; 85610; 85730; 93005; 96360; 96361; A6257; G0378; J2250; J3480; J7060